=== PATIENT | female | born 1955 | race Caucasian/White ===

== ENCOUNTER → 2016-09-08 | Outpatient (CLI) | payer OTHER ==
[~2016-09-08] MED LIST: AMBIEN CR6.25 MG PO; ASPIRIN E.C. 8181 MG PO; CARDI-OMEGA1000 MG PO; CELEBREX200 MG PO; CENTRUM SILVER1 TA1 PO; CITRACAL + D 251 TAB PO; FOLIC ACID 40400 MCG PO; GABAPENTIN300 M1 PO; HYZAAR 50-12.1 UDTAB PO; NIFEREX-150150 MG PO; NO HOME MEDICATIONS; NORCO 325 MG-7.1 TAB PO; OMEPRAZOLE20 MG PO; POLY IRON PN1 TAB PO; PREMARIN0.45 MG PO; PRILOSEC; QUESTRAN1 GM PO; VITAMIN C BUFF500 MG PO; VITAMIN D1000 IU PO
== END ==
LOC: MC.RAD 14:00
DX: Z12.31 Encounter for screening mammogram for malignant neoplasm of breast (principal)

== ENCOUNTER → 2016-09-23 | Outpatient (CLI) | payer OTHER | LOC: COL.RAD 09:16 | DX: K44.9 Diaphragmatic hernia without obstruction or gangrene (principal); K57.30 Diverticulosis of large intestine without perforation or abscess without bleeding; K31.7 Polyp of stomach and duodenum; R79.89 Other specified abnormal findings of blood chemistry; Z90.49 Acquired absence of other specified parts of digestive tract; Z90.710 Acquired absence of both cervix and uterus | CPT/HCPCS: Q9967 ==

== ENCOUNTER → 2016-10-22 | Outpatient (CLI) | payer OTHER | LOC: COL.RAD 12:26 | DX: M48.06 Spinal stenosis, lumbar region (principal); M47.816 Spondylosis without myelopathy or radiculopathy, lumbar region; M46.27 Osteomyelitis of vertebra, lumbosacral region; R90.89 Other abnormal findings on diagnostic imaging of central nervous system; R60.0 Localized edema | CPT/HCPCS: A9585 ==

== ENCOUNTER → 2016-11-11 | Outpatient (CLI) | payer OTHER | LOC: COL.CARD 11:30 | DX: Z01.810 Encounter for preprocedural cardiovascular examination (principal); N36.2 Urethral caruncle ==

== ENCOUNTER → 2017-10-06 | Outpatient (CLI) | payer BC | LOC: MC.RAD 11:40 | DX: Z12.31 Encounter for screening mammogram for malignant neoplasm of breast (principal) ==

== ENCOUNTER 2017-10-15 19:39 | Emergency (ER) | payer BC ==
[~2017-10-15] VITALS: Ht 152.4 cm; Wt 75.0 kg
[2017-10-15 19:42] VITALS: BP 181/94; TEMP 98.5
[2017-10-15 21:05] VITALS: PULSE 83
== END 2017-10-15 21:06 | disposition home or self-care (01) ==
LOC: COL.ER 19:39
DX: Z46.89 Encounter for fitting and adjustment of other specified devices (principal); Z98.890 Other specified postprocedural states; Z79.82 Long term (current) use of aspirin

== ENCOUNTER → 2018-10-18 | Outpatient (CLI) | payer BC | LOC: MC.RAD 13:13 | DX: Z12.31 Encounter for screening mammogram for malignant neoplasm of breast (principal) ==

== ENCOUNTER → 2019-10-24 | Outpatient (CLI) | payer BC | LOC: MC.RAD 13:00 | DX: Z12.31 Encounter for screening mammogram for malignant neoplasm of breast (principal) ==

== ENCOUNTER → 2020-11-20 | Outpatient (CLI) | payer MEDICARE, BC | LOC: MC.RAD 13:00 | DX: Z12.31 Encounter for screening mammogram for malignant neoplasm of breast (principal) ==

== ENCOUNTER → 2021-11-28 | Outpatient (CLI) | payer MEDICARE, BC | LOC: MC.RAD 13:45 | DX: Z12.31 Encounter for screening mammogram for malignant neoplasm of breast (principal) ==